=== PATIENT | female | born 1980 ===

== ENCOUNTER → 2019-08-20 | Outpatient (REF) | LOC: M LAB LCGH 11:56 | PROVIDERS: ATTEND Obstetrics & Gynecology | DX: Z00.00 Encounter for general adult medical examination without abnormal findings (principal) ==

== ENCOUNTER → 2020-11-15 | Outpatient (CLI) | payer SELFPAY | LOC: M LABSMTC 14:17 | PROVIDERS: ATTEND Pediatrics | DX: Z20.822 Contact with and (suspected) exposure to COVID-19 (principal) ==